=== PATIENT | male | born 1975 | race African-American/Black ===

== ENCOUNTER 2019-11-18 13:16 | Emergency (ER) | payer OTHER ==
[2019-11-18 13:26] VITALS: BP 120/85; PULSE 63; TEMP 99.1; BMI 24.3
[2019-11-18] MEDS ORDERED: IBUPROFEN 400 MG TABLET (FP) PO ONE ×2 (14:05→14:08)
--- NOTE | 2019-11-18 14:12 | PDOC ---
History of Present Illness - General Chief Complaint: Back Pain Stated Complaint: BACK PAIN Time Seen by Provider: 11/18/19 14:02 History Source: Patient - History of Present Illness Occurred: reports: other Pain Location: reports: back Past History - Medical History Allergies/Adverse Reactions: Allergies Allergy/AdvReac Type Severity Reaction Status Date / Time No Known Allergies Allergy Verified 11/18/19 13:24 Home Medications: Ambulatory Orders Ibuprofen [Motrin -] 800 mg PO Q6H #30 tablet 11/18/19 - Psycho-Social/Smoking History Smoking History: Never smoked Have you smoked in the past 12 months: No Information on smoking cessation initiated: No - Substance Abuse Hx (Audit-C & DAST Scrn) How often the patient has a drink containing alcohol: Never Score: In Men: 4 or > Positive; In Women: 3 or > Positive: 0 Screen Result (Pos requires Nsg. Audit-10AR): Negative In the last yr the pt used illegal drug/Rx for NonMed reason: No Score: Yes response is considered Positive: 0 Screen Result (Positive result requires Nsg. DAST-10): Negative Review of Systems - Review of Systems Constitutional: No: Chills, Fever Musculoskeletal: Yes: Back Pain Neurological: No: Numbness, Tingling, Weakness *Physical Exam - Vital Signs Last Vital Signs Temp Pulse Resp BP Pulse Ox 99.1 F 63 16 120/85 100 11/18/19 13:24 11/18/19 13:24 11/18/19 13:24 11/18/19 13:24 11/18/19 13:24 - Physical Exam General Appearance: Yes: Appropriately Dressed. No: Apparent Distress HEENT: positive: Normal Voice Neck: positive: Supple Respiratory/Chest: negative: Respiratory Distress Gastrointestinal/Abdominal: positive: Flat. negative: Tender Musculoskeletal: negative: CVA Tenderness, Vertebral Tenderness Integumentary: positive: Dry, Warm Neurologic: positive: Fully Oriented, Alert, Normal Mood/Affect, Motor Strength 5/5 Medical Decision Making - Medical Decision Making 11/18/19 14:08 44 yo M, no sig hx, here w/ diffuse lower back, non-radiating back pain x 2 days, worse w/ movement. Pain started 1 day after heavy lifting at work per pt. 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 No neuro sxs, sxs, n/v/f/c. Did not take anything for pain see exam M/l lower back strain in setting of heavy lifting at work No red flags Dc w/ pain control and PMD f/u as needed 11/18/19 14:13 Discharge - Discharge Information Problems reviewed: Yes Clinical Impression/Diagnosis: Back strain Qualifiers: Encounter type: initial encounter Qualified Code(s): S39.012A - Strain of muscle, fascia and tendon of lower back, initial encounter Condition: Good Disposition: HOME - Additional Discharge Information Prescriptions: Ibuprofen [Motrin -] 800 mg PO Q6H #30 tablet - Follow up/Referral - Patient Discharge Instructions Patient Printed Discharge Instructions: DI for Low Back Pain Additional Instructions: Take motrin as directed and follow up with your PMD as needed - Post Discharge Activity Work/Back to School Note: Back to Work
== END 2019-11-18 14:12 | disposition home or self-care (01) ==
LOC: JERFT 13:16
DX: S39.012A Strain of muscle, fascia and tendon of lower back, initial encounter (principal)
CPT/HCPCS: 99283-25

== ENCOUNTER 2024-11-11 13:47 | Emergency (ER) | payer OTHER ==
[2024-11-11 13:53] VITALS: BP 125/72; PULSE 74; RESP 20; TEMP 98.2; BMI 28.2
[2024-11-11] MEDS ORDERED: IBUPROFEN 600 MG TABLET (FP) PO ONE (14:23)
[2024-11-11] MEDS: IBUPROFEN 600 MG TABLET (FP) PO ONE (14:24)
== END 2024-11-11 15:00 | disposition home or self-care (01) ==
LOC: JERFT 13:47
DX: T22.112A Burn of first degree of left forearm, initial encounter (principal); X15.8XXA Contact with other hot household appliances, initial encounter; Y99.0 Civilian activity done for income or pay
CPT/HCPCS: 99283-25